=== PATIENT | male | born 1995 | race Caucasian/White ===

== ENCOUNTER 2019-06-09 13:59 | Emergency (ER) | payer SELFPAY ==
--- NOTE | 2019-06-09 14:17 | EDM.PDOC ---
ED HPI GENERAL MEDICAL PROBLEM - General Chief Complaint: ENT Problem Stated Complaint: DENTAL COMPLAINT Time Seen by Provider: 06/09/19 14:25 Source of Information: Reports: Patient History Limitations: Reports: No Limitations - History of Present Illness INITIAL COMMENTS - FREE TEXT/NARRATIVE: 24-year-old male presents to the ED with dental pain coming from the left upper molar for the last 3 days. Since taking Advil and Tylenol with very little relief. Didn't sleep at all last night. Pain is rating up into his left facial cheek up to underneath his eye towards his left ear and also below the mandible in his anterior neck. He knows that the tooth is decayed and is never become infected before. Onset: Gradual Onset Date: 06/06/19 Duration: Day(s):, Getting Worse Location: Reports: Face Quality: Reports: Ache (Left upper dental pain from a molar tooth.), Throbbing, Other Severity: Severe (Pulsating at times) Improves with: Reports: None (Pulsating at 10 out of 10) Worsens with: Reports: None Context: Denies: Activity, Exercise, Lifting, Sick Contact, Trauma, Other Associated Symptoms: Reports: Malaise (From not sleeping.). Denies: No Other Symptoms, Confusion, Chest Pain, Cough, cough w sputum, Diaphoresis, Fever/ Chills, Headaches, Loss of Appetite, Nausea/Vomiting Treatments [facility]: Reports: Acetaminophen, NSAIDS Left Upper Tooth/Teeth Pain Score (Numeric/FACES): 10 - Related Data Allergies Allergy/AdvReac Type Severity Reaction Status Date / Time No Known Allergies Allergy Verified 06/09/19 14:12 Home Meds: Home Meds Amoxicillin/Clavulanate K [Augmentin 500-125 MG] 1 tab PO BID #20 tablet [Rx] oxyCODONE HCl/Acetaminophen [Percocet 5-325 mg Tablet] 1 - 2 each PO Q4H PRN # 16 tablet 06/09/19 [Rx] Past Medical History - Past Surgical History Musculoskeletal Surgical History: Reports: Other (See Below) Other Musculoskeletal Surgeries/Procedures:: hand surgery Social & Family History - Tobacco Use Smoking Status *Q: Light Tobacco Smoker Years of Tobacco use: 5 Packs/Tins Daily: 0.1 - Caffeine Use Caffeine Use: Reports: Coffee, Soda - Recreational Drug Use Recreational Drug Use: Yes Recreational Drug Type: Reports: Marijuana/Hashish Recreational Drug Use Frequency: Weekly - Living Situation & Occupation Living situation: Reports: Single Occupation: Employed ED ROS ENT - Review of Systems Review Of Systems: See Below Constitutional: Reports: No Symptoms HEENT: Reports: No Symptoms Respiratory: Reports: No Symptoms Endocrine: Reports: No Symptoms GI/Abdominal: Reports: No Symptoms : Reports: No Symptoms Musculoskeletal: Reports: No Symptoms Skin: Reports: No Symptoms Neurological: Reports: No Symptoms Psychiatric: Reports: No Symptoms Hematologic/Lymphatic: Reports: No Symptoms Immunologic: Reports: No Symptoms ED EXAM, ENT - Physical Exam Exam: See Below Exam Limited By: No Limitations General Appearance: Alert, Mild Distress Eye Exam: Bilateral Eye: Normal Inspection Mouth/Throat: Dental Pain (Dental pain is coming from a badly decayed left upper second molar tooth. Quarter the crown of the tooth is decayed on the buccal surface. No gingiva all abscess evident.), Dental Tenderness (Left upper second tooth.) Head: Atraumatic, Normocephalic Neck: Normal Inspection, Supple, Non-Tender, Full Range of Motion. No: Lymphadenopathy (L), Lymphadenopathy (R) Respiratory/Chest: No Respiratory Distress, Lungs Clear, Normal Breath Sounds, No Accessory Muscle Use Course - Vital Signs Last Recorded V/S: Last Vital Signs Temp Pulse 68 06/09/19 14:08 Resp 20 06/09/19 14:08 BP 105/75 06/09/19 14:08 Pulse Ox 99 06/09/19 14:08 - Radiology Interpretation Free Text/Narrative:: 24-year-old male presents the ED with dental infection coming from the left upper second molar tooth. The tooth is badly decayed with partially a quarter of the tooth crown decayed on the buccal posterior surface. Placed on Augmentin 500/125 mg tablets twice daily for the next 10 days. Continue Motrin 600 mg every 6 hours. 16 tablets of Percocet were provided 5/325 mg one or 2 every 4-6 hours needed for pain relief. Advised to seek out a dentist sometime within the next 5-10 days to have the tooth extracted otherwise the infection is going to come back. Departure - Departure Time of Disposition: 14:34 Disposition: Home, Self-Care 01 Condition: Fair Clinical Impression: Infected dental caries - Discharge Information *PRESCRIPTION DRUG MONITORING PROGRAM REVIEWED*: Not Applicable *COPY OF PRESCRIPTION DRUG MONITORING REPORT IN PATIENT [facility]: Not Applicable Prescriptions: Amoxicillin/Clavulanate K [Augmentin 500-125 MG] 1 tab PO BID #20 tablet oxyCODONE HCl/Acetaminophen [Percocet 5-325 mg Tablet] 1 - 2 each PO Q4H PRN # 16 tablet PRN Reason: pain relief. Instructions: Dental Abscess Referrals: PCP,None [Primary Care Provider] - Forms: ED Department Discharge Additional Instructions: Evaluation the emergent today in regards to severe dental pain coming from the left upper can molar tooth which is badly decayed with approximately 25% of the tooth decayed. No gingiva wall abscess identified. Treatment is to be antibiotic Augmentin 500/125 mg tablet twice daily for the next 10 days to clear up infection. Continue Motrin 600 mg every 6 hours to days pain and inflammation. Percocet tabs 5/325 mg one or 2 every 4-6 hours needed for pain relief not controlled by Motrin alone. Expect improvement in pain syndrome over the next 4872 hours once the antibiotics become effective. You will need to see a dentist to have this tooth extracted sometime in the next 10-14 days otherwise the infection is strongly likely to occur. Unable to get into a dentist in [place] consider traveling to [place]. Consider clinic [email or web address] [phone] to arrange an appointment.
== END 2019-06-09 14:57 | disposition home or self-care (01) ==
LOC: JD.ED 13:59
DX: K02.9 Dental caries, unspecified (principal); F17.210 Nicotine dependence, cigarettes, uncomplicated
CPT/HCPCS: 99282